=== PATIENT | female | born 1995 | race Caucasian/White ===

== ENCOUNTER 2017-02-18 01:36 | Emergency (ER) | payer OTHER, SELFPAY ==
[2017-02-18 02:43] LABS: Bilirubin Negative (Negative); Blood, Urine Negative (Negative); Clarity CLOUDY (Clear); Glucose, Urine (Dipstick) Negative (Negative); Leukocyte Negative (Negative); Nitrite Negative (Negative); Protein, Urine (Dipstick) Negative (Neg-Trace); Specific Gravity, Urine 1.017 (1.002-1.036)
[2017-02-18] MEDS ORDERED: Ketorolac Tromethamine 30 MG/ML VIAL ONE (03:11)
[2017-02-18] MEDS ORDERED: Cyclobenzaprine 10 MG TAB ONE (03:11)
[2017-02-18 03:15] LABS: Pregnancy Test - Urine (BHCG) Negative (Negative); Pregu Control Background? CLEAR/WHITE (CLR/WHITE); Pregu Control Bar Appear? YES (CONTROL BAR); Specific Gravity 1.017 (1.002-1.036)
== END 2017-02-18 04:37 | disposition home or self-care (01) ==
LOC: ERS 01:36
DX: M54.5 Low back pain (principal); K21.9 Gastro-esophageal reflux disease without esophagitis; J45.909 Unspecified asthma, uncomplicated; F41.9 Anxiety disorder, unspecified; Z79.899 Other long term (current) drug therapy
CPT/HCPCS: 81003; 81025; 96372; J1885

== ENCOUNTER 2017-12-14 14:00 | Emergency (ER) | payer SELFPAY ==
[2017-12-14] MEDS ORDERED: Fentanyl 100 MCG/2 ML VIAL ONE (14:26)
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
== END 2017-12-14 16:06 | disposition home or self-care (01) ==
LOC: ERS 14:00
DX: M25.532 Pain in left wrist (principal); M25.571 Pain in right ankle and joints of right foot; M79.661 Pain in right lower leg; F41.0 Panic disorder [episodic paroxysmal anxiety]; K21.9 Gastro-esophageal reflux disease without esophagitis; J45.909 Unspecified asthma, uncomplicated; Z79.899 Other long term (current) drug therapy; V86.99XA Unspecified occupant of other special all-terrain or other off-road motor vehicle injured in nontraffic accident, initial encounter
CPT/HCPCS: 96374; J3010

== ENCOUNTER 2018-04-22 20:29 | Emergency (ER) | payer SELFPAY ==
[2018-04-22] MEDS ORDERED: Ondansetron ODT 4 MG TAB ONE (21:06)
[2018-04-22 21:09] LABS: #Basophils 0.1 thou/uL (0.0-0.2); #Eosinphils 0.2 thou/uL (0.0-0.7); #Lymphocytes 2.1 thou/uL (1.20-3.40); #Monocytes 0.5 thou/uL (0.11-0.59); #Neutrophils 4.7 thou/uL (1.40-6.50); %Basophils 1.1 % (0.0-1.0); %Eosinophils 3.1 % (0.0-10.0); %Lymphocytes 27.8 % (28.0-48.0); %Monocytes 6.3 % (0.0-4.0); %Neutrophils 61.6 % (31.0-61.0); Hemoglobin 14.6 g/dL (12.0-16.0); Mean Corpuscular HGB CONC 33.9 g/dL (32.0-36.0); Mean Corpuscular Volume 94.3 fL (78.0-98.0); Platelet Count 266 thou/uL (130-400); RBC Distribution Width 12.5 % (11.5-14.5); Red Blood Cell (RBC) Count 4.57 mill/uL (4.00-5.20); White Blood Cell (WBC) Count 7.6 thou/uL (4.8-10.8)
[2018-04-22 21:18] LABS: Bilirubin Negative (Negative); Blood, Urine Negative (Negative); Clarity CLEAR (Clear); Glucose, Urine (Dipstick) Negative (Negative); Leukocyte Negative (Negative); Nitrite Negative (Negative); Protein, Urine (Dipstick) Trace mg/dL (Neg-Trace); Specific Gravity, Urine 1.011 (1.002-1.036); pH, Urine 7.5 (5.0-9.0)
[2018-04-22 21:19] LABS: Pregnancy Test - Urine (BHCG) Negative (Negative); Pregu Control Background? CLEAR/WHITE (CLR/WHITE); Pregu Control Bar Appear? YES (CONTROL BAR); Specific Gravity 1.011 (1.002-1.036)
[2018-04-22 21:25] LABS: ALT (SGPT) 16 U/L (8-55); AST (SGOT) 15 U/L (5-34); Albumin 4.8 g/dL (3.5-5.0); Alkaline Phosphatase 103 U/L (40-150); Anion Gap 14 mmol/L (10-20); BUN (Urea Nitrogen) 7 mg/dL (7.0-18.7); Bilirubin, Total 0.4 mg/dL (0.2-1.2); Calc. Creatinine Clearance 0 mL/min (70-130); Calcium 9.9 mg/dL (7.8-10.44); Carbon Dioxide 24 mmol/L (22-29); Chloride 105 mmol/L (98-107); Estimated GFR-MDRD Greater than 90; Globulin 3.4 g/dL (2.4-3.5); Glucose 83 mg/dL (70-105); Potassium 3.5 mmol/L (3.5-5.1); Protein, Total 8.2 g/dL (6.0-8.3); Sodium 139 mmol/L (136-145)
[2018-04-24 00:55] LABS: Chlamydia by PCR Not Detected (NotDetected); GC by PCR Not Detected (NotDetected)
== END 2018-04-22 22:25 | disposition home or self-care (01) ==
LOC: ERS 20:29
DX: N73.9 Female pelvic inflammatory disease, unspecified (principal); F41.0 Panic disorder [episodic paroxysmal anxiety]; K21.9 Gastro-esophageal reflux disease without esophagitis; J45.909 Unspecified asthma, uncomplicated; Z79.51 Long term (current) use of inhaled steroids
CPT/HCPCS: 36415; 80053; 81003; 81025; 85025; 87086; 87480; 87491; 87510; 87591; 87660; 99284; Q0162

== ENCOUNTER 2018-04-25 15:23 | Emergency (ER) | payer SELFPAY ==
[2018-04-25 16:44] LABS: #Eosinphils 0.1 thou/uL (0.0-0.7); #Lymphocytes 1.3 thou/uL (1.20-3.40); #Monocytes 0.4 thou/uL (0.11-0.59); %Basophils 0.7 % (0.0-1.0); %Eosinophils 2.5 % (0.0-10.0); %Monocytes 6.6 % (0.0-4.0); %Neutrophils 68.3 % (31.0-61.0); Hemoglobin 14.2 g/dL (12.0-16.0); Mean Corpuscular HGB CONC 33.2 g/dL (32.0-36.0); Mean Corpuscular Hemoglobin 31.6 pg (25.0-35.0); Mean Platelet Volume 8.1 fL (7.4-10.4); Platelet Count 212 thou/uL (130-400); RBC Distribution Width 12.6 % (11.5-14.5); White Blood Cell (WBC) Count 5.9 thou/uL (4.8-10.8)
[2018-04-25 16:48] LABS: BHCG - Serum Negative (NEGATIVE); Pregs Control Background? CLEAR/WHITE (CLR/WHITE); Pregs Control Bar Appear? YES (CONTROL BAR)
== END 2018-04-25 18:02 | disposition home or self-care (01) ==
LOC: ERS 15:23
DX: N93.9 Abnormal uterine and vaginal bleeding, unspecified (principal)
CPT/HCPCS: 36415; 84703; 85025; 99284

== ENCOUNTER 2019-04-06 20:30 | Emergency (ER) | payer SELFPAY ==
[2019-04-06 21:06] LABS: Bilirubin Negative (Negative); Blood, Urine Negative (Negative); Clarity Clear (Clear); Glucose, Urine (Dipstick) Normal (Negative); Leukocyte Negative Leu/uL (Negative); Nitrite Negative (Negative); Protein, Urine (Dipstick) Negative (Neg-Trace); Urobilinogen Normal mg/dL (Less than 2)
[2019-04-06 21:07] LABS: Pregnancy Test - Urine (BHCG) Negative (Negative); Specific Gravity 1.002 (1.002-1.036)
[2019-04-06 21:08] LABS: Pregu Control Background? CLEAR/WHITE (CLR/WHITE); Pregu Control Bar Appear? YES (CONTROL BAR)
[2019-04-06] MEDS ORDERED: Morphine 4 MG/ML VIAL ONE (21:20)
[2019-04-06] MEDS ORDERED: Ondansetron PF 4 MG/2 ML Vial ONE (21:20)
[2019-04-06 21:24] LABS: #Basophils 0.1 thou/uL (0.0-0.2); #Eosinphils 0.3 thou/uL (0.0-0.7); #Monocytes 0.5 thou/uL (0.11-0.59); #Neutrophils 3.7 thou/uL (1.40-6.50); %Basophils 0.9 % (0.0-1.0); %Eosinophils 4.7 % (0.0-10.0); %Lymphocytes 30.8 % (21.0-51.0); %Monocytes 7.1 % (0.0-10.0); %Neutrophils 56.4 % (42.0-75.0); Hemoglobin 14.5 g/dL (12.0-16.0); Mean Corpuscular HGB CONC 35.6 g/dL (32.0-36.0); Mean Corpuscular Hemoglobin 33.4 pg (27.0-31.0); Mean Corpuscular Volume 93.9 fL (78.0-98.0); Mean Platelet Volume 7.6 fL (7.4-10.4); Platelet Count 278 thou/uL (130-400); RBC Distribution Width 11.8 % (11.5-14.5); Red Blood Cell (RBC) Count 4.33 mill/uL (4.20-5.40); White Blood Cell (WBC) Count 6.5 thou/uL (4.8-10.8)
[2019-04-06 21:45] LABS: ALT (SGPT) 14 U/L (8-55); AST (SGOT) 13 U/L (5-34); Albumin 4.7 g/dL (3.5-5.0); Alkaline Phosphatase 104 U/L (40-110); Anion Gap 14 mmol/L (10-20); BUN (Urea Nitrogen) 10 mg/dL (7.0-18.7); Bilirubin, Total 0.5 mg/dL (0.2-1.2); Calc. Creatinine Clearance 0 mL/min (70-130); Calcium 9.4 mg/dL (7.8-10.44); Carbon Dioxide 24 mmol/L (22-29); Chloride 106 mmol/L (98-107); Estimated GFR-MDRD Greater than 90; Glucose 99 mg/dL (70-105); Lipase 19 U/L (8-78); Potassium 3.9 mmol/L (3.5-5.1); Protein, Total 7.7 g/dL (6.0-8.3); Sodium 140 mmol/L (136-145)
--- NOTE | 2019-04-06 23:00 | ULT ---
Exam: Endovaginal pelvic ultrasound HISTORY: Negative hCG. Pelvic pain. COMPARISON: 04/17/2016 TECHNIQUE: Endovaginal imaging of the pelvis is performed. Ovaries are interrogated with grayscale, c olor flow, Doppler imaging and spectral waveform analysis FINDINGS: Uterus: No myometrial masses. Uterus measures 5.2 x 2.8 x 7.7 cm Endometrium has a homogeneous echotexture. Endometrial diameter is approximately 0.2 cm. Small amount of free fluid in the pelvis, specifically in the cul-de-sac. Left ovary has a normal echotexture. Follicles are present. Left ovary measures 3.2 x 1.3 x 1.9 cm. Multiple anechoic foci in the right ovary. Largest anechoic focus measures 1.6 cm and is felt to repr esent a dominant follicle. Overall the right ovary measures 2.5 x 3.2 x 2.5 cm. Ovarian Doppler: Vascular flow to both ovaries. IMPRESSION: Unremarkable pelvic ultrasound
[2019-04-08 00:09] LABS: Chlamydia by PCR DETECTED (NotDetected); GC by PCR DETECTED (NotDetected)
== END 2019-04-06 23:58 | disposition home or self-care (01) ==
LOC: ERS 20:30
DX: N76.0 Acute vaginitis (principal); K21.9 Gastro-esophageal reflux disease without esophagitis; J45.909 Unspecified asthma, uncomplicated; F41.9 Anxiety disorder, unspecified; F41.0 Panic disorder [episodic paroxysmal anxiety]; Z87.891 Personal history of nicotine dependence
CPT/HCPCS: 36415; 76856; 80053; 81003; 81025; 83690; 85025; 87480; 87491; 87510; 87591; 87660; 96361; 96374; 96375; J2270; J2405

== ENCOUNTER 2019-05-01 14:14 | Emergency (ER) | payer SELFPAY ==
[2019-05-01] MEDS ORDERED: Azithromycin 250 MG TAB ONE (14:58)
[2019-05-01] MEDS ORDERED: cefTRIAXone\\ROCEPHIN 250 MG VIAL ONE (14:58)
[2019-05-01] MEDS ORDERED: Lidocaine 1% PF 5 ML VIAL ONE (14:58)
== END 2019-05-01 15:47 | disposition home or self-care (01) ==
LOC: ER/OP 14:14
DX: Z20.2 Contact with and (suspected) exposure to infections with a predominantly sexual mode of transmission (principal)
CPT/HCPCS: 96372; J0696; J2001

== ENCOUNTER 2021-03-15 21:21 | Emergency (ER) | payer SELFPAY ==
[2021-03-17 12:46] LABS: SARS-CoV-2 PCR by NAA Not Detected (NotDetected)
== END 2021-03-15 21:45 | disposition home or self-care (01) ==
LOC: ERS 21:21
DX: R05.9 Cough, unspecified (principal); K21.9 Gastro-esophageal reflux disease without esophagitis; J45.909 Unspecified asthma, uncomplicated; Z87.891 Personal history of nicotine dependence; Z20.822 Contact with and (suspected) exposure to COVID-19; Z79.899 Other long term (current) drug therapy
CPT/HCPCS: 99283; U0003; U0005

== ENCOUNTER 2022-10-27 13:09 | Emergency (ER) | payer BC ==
[2022-10-27 13:40] LABS: #Eosinphils 0.2 thou/uL (0.0-0.7); #Monocytes 0.4 thou/uL (0.11-0.59); #Neutrophils 5.4 thou/uL (1.40-6.50); %Basophils 0.5 % (0.0-1.0); %Eosinophils 2.3 % (0.0-10.0); %Lymphocytes 20.4 % (21.0-51.0); %Monocytes 5.3 % (0.0-10.0); %Neutrophils 70.3 % (42.0-75.0); Hemoglobin 14.3 g/dL (12.0-16.0); Platelet Count 292 10x3/uL (130-400); RBC Distribution Width 13.8 % (11.5-14.5); Red Blood Cell (RBC) Count 4.47 mill/uL (4.20-5.40); White Blood Cell (WBC) Count 7.7 10x3/uL (4.8-10.8)
[2022-10-27 13:44] LABS: ALT (SGPT) 10 U/L (8-55); AST (SGOT) 11 U/L (5-34); Albumin 4.5 g/dL (3.5-5.0); Alkaline Phosphatase 84 U/L (40-110); Anion Gap 11 mmol/L (10-20); BUN (Urea Nitrogen) 8 mg/dL (7.0-18.7); Bilirubin, Total 0.5 mg/dL (0.2-1.2); Calc. Creatinine Clearance 0 mL/min (70-130); Calcium 9.5 mg/dL (7.8-10.44); Carbon Dioxide 24 mmol/L (22-29); Chloride 107 mmol/L (98-107); Estimated GFR 95; Globulin 3.2 g/dL (2.4-3.5); Glucose 93 mg/dL (70-105); Protein, Total 7.7 g/dL (6.0-8.3); Sodium 138 mmol/L (136-145)
[2022-10-27 14:30] LABS: BHCG - Serum Negative (NEGATIVE); Pregs Control Background? CLEAR/WHITE (CLR/WHITE); Pregs Control Bar Appear? YES (CONTROL BAR)
[2022-10-27 15:02] LABS: Bacteria/HPF None Seen HPF (None Seen); Bilirubin Negative (Negative); Blood, Urine Negative (Negative); CAUTI Indications for Culture < 2yrs of age; Clarity Clear (Clear); Glucose, Urine (Dipstick) Normal (Negative); Ketone, Urine Negative (Negative); Leukocyte Negative Leu/uL (Negative); Nitrite Negative (Negative); Protein, Urine (Dipstick) Negative (Neg-Trace); RBC/HPF 0-3 HPF (0-3); Specific Gravity, Urine 1.006 (1.002-1.036); Squamous Epithelial 0-3 HPF (0-3); Urobilinogen Normal mg/dL (Less than 2); WBC/HPF 0-3 HPF (0-3)
[2022-10-27 15:07] LABS: Urine Culture Reflex Yes Yes
[2022-10-27 15:39] LABS: SARS-CoV-2 NAA Rapid Test Not Detected (NotDetected)
[2022-10-27] MEDS ORDERED: Dexamethasone 10 MG/ML VIAL ONE (16:01)
[2022-10-27] MEDS ORDERED: Albuterol 200 PUFF INH ONE (16:01)
== END 2022-10-27 16:30 | disposition home or self-care (01) ==
LOC: ERS 13:09
DX: J45.909 Unspecified asthma, uncomplicated (principal); K21.9 Gastro-esophageal reflux disease without esophagitis; F17.290 Nicotine dependence, other tobacco product, uncomplicated; Z20.822 Contact with and (suspected) exposure to COVID-19
CPT/HCPCS: 36415; 71045; 80053; 81001; 84703; 85025; 87086; 93005; J1100

== ENCOUNTER 2023-02-02 19:37 | Emergency (ER) | payer BC ==
[2023-02-02] MEDS ORDERED: Ondansetron ODT 4 MG TAB ONE (20:42)
[2023-02-02] MEDS ORDERED: predniSONE 20 MG TAB ONE (20:42)
== END 2023-02-02 22:33 | disposition home or self-care (01) ==
LOC: ERS 19:37
DX: J06.9 Acute upper respiratory infection, unspecified (principal); H66.91 Otitis media, unspecified, right ear; H73.91 Unspecified disorder of tympanic membrane, right ear; J03.90 Acute tonsillitis, unspecified; K21.9 Gastro-esophageal reflux disease without esophagitis
CPT/HCPCS: 71045; 87081; 87430; J7512; Q0162

== ENCOUNTER 2025-01-08 18:19 | Emergency (ER) | payer OTHER | END 2025-01-08 22:26 | disposition home or self-care (01) | LOC: ERS 18:19 | DX: L02.411 Cutaneous abscess of right axilla (principal) | CPT/HCPCS: 10060 ==